=== PATIENT | female | born 1985 | race Caucasian/White ===

== ENCOUNTER 2023-05-24 14:14 | Emergency (ER) | payer BC, OTHER ==
[2023-05-24 14:51] LABS: Hematocrit 43.5 % (36.0-45.0); Lymphocytes % 33.2 % (15.3-44.8); MPV 8.7 fL (7.6-11.3); RBC Red Blood Cell Count 4.84 M/uL (3.86-4.86)
[2023-05-24] MEDS ORDERED: KETOROLAC 30 MG/ML INJ ONE (14:53)
[2023-05-24] MEDS ORDERED: DIPHENHYDRAMINE 50 MG/ML VIAL ONE (14:53)
[2023-05-24] MEDS ORDERED: METOCLOPRAMIDE 10 MG/2mL INJ ONE (14:53)
[2023-05-24] MEDS ORDERED: NA CHLORIDE 0.9% 1,000 ML ONE (14:53)
[2023-05-24 15:03] LABS: Albumin 3.5 g/dL (3.4-5.0); Bilirubin Total 0.6 mg/dL (0.2-1.0); Potassium 3.4 mEq/L (3.5-5.1); Protein, Total 7.6 g/dL (6.4-8.2)
--- NOTE | 2023-05-24 15:11 | RAD REPORT ---
EXAM DESCRIPTION: CT - Head Brain Wo Cont - 05/24/2023 3:00 pm CLINICAL HISTORY: HEADACHE Headache, drowsiness COMPARISON: Head Brain Wo Cont dated 05/24/2023No comparisonsNo comparisons TECHNIQUE: All CT scans are performed using dose optimization technique as appropriate and may inclu de automated exposure control or mA/KV adjustment according to patient size. FINDINGS: No intracranial hemorrhage, hydrocephalus or extra-axial fluid collection.No areas of brai n edema or evidence of midline shift. Mild mucosal thickening of several of the paranasal sinuses. The calvarium is intact. IMPRESSION: No acute intracranial abnormality.
[2023-05-24 16:59] LABS: Specific Gravity 1.008 (1.005-1.030)
[2023-05-24 17:00] LABS: Specific Gravity 1.008 (1.005-1.030); Urine Bacteria <20 /HPF (<20); Urine Bilirubin NEGATIVE (Negative); Urine Blood Negative (Negative); Urine Clarity Turbid (Clear); Urine Color Colorless (Yellow); Urine Glucose NEGATIVE (Negative); Urine Mucus Slight /HPF (None Seen); Urine Protein NEGATIVE (Negative); Urine RBC <5 /HPF (None Seen); Urine Urobilinogen Normal (Normal); Urine pH 5.5 (5.0-7.0)
--- NOTE | 2023-05-24 17:19 | RAD REPORT ---
EXAM DESCRIPTION: CT - Head angio - 05/24/2023 5:07 pm CLINICAL HISTORY: HEADACHE Headache, drowsiness COMPARISON: Head Brain Wo Cont dated 05/24/2023 TECHNIQUE: CT angiography of the head was performed with MIPs. All CT scans are performed using dose optimization technique as appropriate and may include automated exposure control or mA/KV adjustment according to patient size. FINDINGS: No evidence of large vessel occlusion. No evidence of aneurysm is detected. No flow-limiti ng stenosis or vascular malformation identified. Antegrade flow is seen in the vertebral arteries. Left vertebral mildly dominant. The visualized dural venous sinuses are patent. Moderate paranasal sinus disease is present. IMPRESSION: No significant flow abnormality is detected.
--- NOTE | 2023-05-24 17:21 | RAD REPORT ---
EXAM DESCRIPTION: CT - Neck Angio - 05/24/2023 5:07 pm CLINICAL HISTORY: PAIN Pain, swelling is, CVA symptomology COMPARISON: No comparisons TECHNIQUE: CT angiography of the neck vessels was performed with MIPs. All CT scans are performed using dose optimization technique as appropriate and may include automated exposure control or mA/KV adjustment according to patient size. FINDINGS: A left aortic arch is identified with normal three vessel configuration of the great vesse ls. No significant flow abnormality is seen of the common carotid bilaterally. No significant stenosis is identified involving the cervical segments of both internal carotid arteri es. Normal flow is seen within both vertebral arteries. IMPRESSION: No significant flow abnormality of the neck vessels is identified. NASCET criteria used. Mild 0-49% stenosis Moderate 50-69% stenosis Severe 70-99% stenosis
--- NOTE | 2023-05-24 17:22 | EDPHYS ---
Physician Documentation [facility] Name: Khushbu Casiano Age: 37 yrs Sex: Female : 1985 Arrival Date: 05/24/2023 Time: 14:14 Bed 14 Private MD: PAVEL Physician Toby Reyes HPI: 05/24 16:38 This 37 yrs old Female presents to ER via Ambulatory with complaints of saji Severe Headache. 16:38 The patient complains of pain to the top of head, forehead, left eye, left frontal saji area, left side of forehead and left temporal area. The patient describes the headache as constant. Onset: The symptoms/episode began/occurred gradually, 3 day(s) ago. Associated signs and symptoms: Pertinent positives: nausea. Severity of symptoms: At its worst the pain was moderate, severe, in the emergency department the pain has improved, moderately. Headache History: Denies prior headaches. The symptoms are alleviated by nothing. the symptoms are aggravated by lights, movement, noise. The patient has not experienced similar symptoms in the past. 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 - Social history:: Smoking status: Patient denies any tobacco usage or history of. - Family history:: not pertinent. ROS: 16:38 Constitutional: Negative for fever, chills, and weight loss, Eyes: Negative for injury, saji pain, redness, and discharge, ENT: Negative for injury, pain, and discharge, Neck: Negative for injury, pain, and swelling, Cardiovascular: Negative for chest pain, palpitations, and edema, Respiratory: Negative for shortness of breath, cough, wheezing, and pleuritic chest pain, Abdomen/GI: Negative for abdominal pain, nausea, vomiting, diarrhea, and constipation, Back: Negative for injury and pain, : Negative for injury, bleeding, discharge, and swelling, MS/Extremity: Negative for injury and deformity, Skin: Negative for injury, rash, and discoloration, Psych: Negative for depression, anxiety, suicide ideation, homicidal ideation, and hallucinations, Allergy/Immunology: Negative for hives, rash, and allergies, Endocrine: Negative for neck swelling, polydipsia, polyuria, polyphagia, and marked weight changes, Hematologic/Lymphatic: Negative for swollen nodes, abnormal bleeding, and unusual bruising. 16:38 Neuro: Positive for headache, of the left temporal area and left side of forehead and left frontal area and left eye and forehead. Exam: 16:38 Constitutional: This is a well developed, well nourished patient who is awake, alert, saji and in no acute distress. Head/Face: Normocephalic, atraumatic. Eyes: Pupils equal round and reactive to light, extra-ocular motions intact. Lids and lashes normal. Conjunctiva and sclera are non-icteric and not injected. Cornea within normal limits. Periorbital areas with no swelling, redness, or edema. ENT: Nares patent. No nasal discharge, no septal abnormalities noted. Tympanic membranes are normal and external auditory canals are clear. Oropharynx with no redness, swelling, or masses, exudates, or evidence of obstruction, uvula midline. Mucous membranes moist. Neck: Trachea midline, no thyromegaly or masses palpated, and no cervical lymphadenopathy. Supple, full range of motion without nuchal rigidity, or vertebral point tenderness. No Meningismus. Chest/axilla: Normal chest wall appearance and motion. Nontender with no deformity. No lesions are appreciated. Cardiovascular: Regular rate and rhythm with a normal S1 and S2. No gallops, murmurs, or rubs. Normal PMI, no JVD. No pulse deficits. Respiratory: Lungs have equal breath sounds bilaterally, clear to auscultation and percussion. No rales, rhonchi or wheezes noted. No increased work of breathing, no retractions or nasal flaring. Abdomen/GI: Soft, non-tender, with normal bowel sounds. No distension or tympany. No guarding or rebound. No evidence of tenderness throughout. Back: No spinal tenderness. No costovertebral tenderness. Full range of motion. Skin: Warm, dry with normal turgor. Normal color with no rashes, no lesions, and no evidence of cellulitis. MS/ Extremity: Pulses equal, no cyanosis. Neurovascular intact. Full, normal range of motion. Neuro: Awake and alert, GCS 15, oriented to person, place, time, and situation. Cranial nerves II-XII grossly intact. Motor strength 5/5 in all extremities. Sensory grossly intact. Cerebellar exam normal. Normal gait. Psych: Awake, alert, with orientation to person, place and time. Behavior, mood, and affect are within normal limits. 16:38 Neck: External neck: is normal, no acute changes, C-spine: appears grossly normal, no acute changes, Thyroid: appears normal, no acute changes, Trachea: is midline with no obvious abnormalities, no acute changes, ROM/movement: is normal, no acute changes, Lymph nodes: no appreciated lymphadenopathy. Vital Signs: 14:30 BP 143 / 92; Pulse 74; Resp 16; Temp 98.4(O); Pulse Ox 100% ; Weight 97.52 kg; Height 5 hb ft. 7 in. ; Pain 10/10; 14:30 BP 129 / 99; Pulse 73; Resp 16; Pulse Ox 100% on R/A; ko1 15:00 BP 130 / 83; Pulse 63; Resp 18; Pulse Ox 100% ; ko1 16:50 BP 111 / 74; Pulse 68; Resp 18; Pulse Ox 99% ; ko1 14:30 Body Mass Index 33.67 (97.52 kg, 170.18 cm) hb 14:30 Pain Scale: Adult hb [place] Coma Score: 16:41 Eye Response: spontaneous(4). Motor Response: obeys commands(6). Verbal Response: saji oriented(5). Total: 15. MDM: 14:32 Patient medically screened. saji 16:41 Differential diagnosis: cluster headache, cerebral vascular accident, epidural saji hematoma, hypertensive headache, hyponatremia, intracerebral hemorrhage, migraine, neoplasm, subarachnoid bleed, subdural hematoma, temporal arteritis, tension headache, traumatic injuries, trigeminal neuralgia, uremia, vasomotor headache. Data reviewed: vital signs, nurses notes, lab test result(s), radiologic studies, CT scan. Consideration of Admission/Observation Escalation of care including admission/observation considered. I considered the following discharge prescriptions or medication management in the emergency department Medications were administered in the Emergency Department. See MAR. Independent interpretation of the following test(s) in the Emergency Department. Test considered but Not performed: MRI: no mri brain. Care significantly affected by the following chronic conditions: none. Counseling: I had a detailed discussion with the patient and/or guardian regarding: the historical points, exam findings, and any diagnostic results supporting the discharge/admit diagnosis, lab results, radiology results, the need for outpatient follow up, for definitive care, a family practitioner, a neurologist. 05/24 14:31 Order name: CBC with Diff; Complete Time: 16:33 [facility] 05/24 14:31 Order name: Comprehensive Metabolic Panel; Complete Time: 16:33 [facility] 05/24 14:31 Order name: Urinalysis w/ reflexes; Complete Time: 17:20 [facility] 05/24 14:31 Order name: PREGU; Complete Time: 17:20 [facility] 05/24 14:31 Order name: CT Head Brain wo Cont; Complete Time: 16:33 [facility] 05/24 16:38 Order name: CT Head Angio [facility] 05/24 16:38 Order name: CT Neck Angio [facility] 05/24 14:31 Order name: Oxygen: 2 liters; Complete Time: 14:32 [facility] 05/24 16:34 Order name: Misc. Order: ua please; Complete Time: 17:14 [facility] Administered Medications: 14:54 Drug: NS 0.9% IV 1000 ml Route: IV; Rate: 1 bolus; Site: right antecubital; ko1 14:54 Drug: Ketorolac IVP 30 mg Route: IVP; Site: right antecubital; ko1 14:54 Drug: diphenhydrAMINE IVP 50 mg Route: IVP; Site: right antecubital; ko1 14:54 Drug: metoCLOPramide IVP 10 mg Route: IVP; Site: right antecubital; ko1 16:39 Drug: NS 0.9% IV 1000 ml Route: IV; Rate: 1 bolus; Site: right antecubital; ko1 Disposition Summary: 05/24/23 17:21 Discharge Ordered Location: Home saji Problem: new saji Symptoms: have improved saji Condition: Stable saji Diagnosis - Headache saji Followup: saji - With: Private Physician - When: 2 - 3 days - Reason: Recheck today's complaints, Continuance of care, Re-evaluation by your physician Followup: saji - With: - When: 2 - 3 days - Reason: Recheck today's complaints, Re-evaluation by your physician Discharge Instructions: - Discharge Summary Sheet saji - Cluster Headache saji - General Headache Without Cause saji - Migraine Headache saji - General Headache Without Cause, [id number] [facility] Forms: - Medication Reconciliation Form saji - Thank You Letter saji - Antibiotic Education saji - Prescription Opioid Use saji - Patient Portal Instructions [facility] Prescriptions: - Fioricet with Codeine [id number] mg Oral capsule - take 2 capsule by ORAL route every 4 hours as needed for pain; do not exceed 6 saji caps per day; 15 capsule; Refills: 0, Product Selection Permitted - ondansetron 4 mg Oral Tablet,disintegrating - take 1 tablet by ORAL route 3 times per day; 20 tablet; Refills: 0, Product saji Selection Permitted - Medrol (Jarrell) 4 mg Oral Tablets, Dose Pack - take 1 tablet by ORAL route as directed - follow package instructions; 1 saji packet; Refills: 0, Product Selection Permitted Signatures: Dispatcher [employer] Toby Hull MD MD cha Baxter, Heather, RN RN Melissa Singh, RN RN ko1
--- NOTE | 2023-05-24 17:22 | ER ---
Nurse's Notes [facility] Name: Khushbu Casiano Age: 37 yrs Sex: Female : 1985 Arrival Date: 05/24/2023 Time: 14:14 Bed 14 Private MD: Diagnosis: Headache Presentation: 05/24 14:30 Chief complaint: Left sided headache, worse around left eye, and nausea x 5 days. hb Coronavirus screen: At this time, the client does not indicate any symptoms associated with coronavirus-19. Ebola Screen: No symptoms or risks identified at this time. Initial Sepsis Screen: Does the patient meet any 2 criteria? No. Patient's initial sepsis screen is negative. Does the patient have a suspected source of infection? No. Patient's initial sepsis screen is negative. Risk Assessment: Do you want to hurt yourself or someone else? Patient reports no desire to harm self or others. Onset of symptoms was May 19, 2023. 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 - Social history:: Smoking status: Patient denies any tobacco usage or history of. - Family history:: not pertinent. Screenin:30 [facility] ED Fall Risk Assessment (Adult) History of falling in the last 3 months, ko1 including since admission No falls in past 3 months (0 pts) Confusion or Disorientation No (0 pts) Intoxicated or Sedated No (0 pts) Impaired Gait No (0 pts) Mobility Assist Device Used No (0 pt) Altered Elimination No (0 pt) Score/Fall Risk Level 0 - 2 = Low Risk Oriented to surroundings, Maintained a safe environment, Educated pt \T\ family on fall prevention, incl call for assistance when getting out of bed, Assessed \T\ reinforced patient's understanding of fall precautions, Provided non-skid footwear, Hourly rounding (assess needs \T\ fall precautionary measures) done, Used ambulatory aids as needed (educated on \T\ assisted with), Used gait belt as appropriate. Abuse screen: Denies threats or abuse. Denies injuries from another. Nutritional screening: No deficits noted. Tuberculosis screening: No symptoms or risk factors identified. Assessment: 14:30 General: Appears in no apparent distress. uncomfortable, Behavior is calm, cooperative, ko1 appropriate for age. Pain: Complains of pain in left temporal area and left side of forehead and left frontal area and left eye and forehead and top of head. Neuro: Reports headache in left frontal area. Cardiovascular: No deficits noted. Respiratory: No deficits noted. GI: No deficits noted. : No deficits noted. EENT: No deficits noted. Derm: No deficits noted. Musculoskeletal: No deficits noted. Vital Signs: 14:30 BP 143 / 92; Pulse 74; Resp 16; Temp 98.4(O); Pulse Ox 100% ; Weight 97.52 kg; Height 5 hb ft. 7 in. ; Pain 10/10; 14:30 BP 129 / 99; Pulse 73; Resp 16; Pulse Ox 100% on R/A; ko1 15:00 BP 130 / 83; Pulse 63; Resp 18; Pulse Ox 100% ; ko1 16:50 BP 111 / 74; Pulse 68; Resp 18; Pulse Ox 99% ; ko1 14:30 Body Mass Index 33.67 (97.52 kg, 170.18 cm) hb 14:30 Pain Scale: Adult hb [place] Coma Score: 16:41 Eye Response: spontaneous(4). Motor Response: obeys commands(6). Verbal Response: saji oriented(5). Total: 15. ED Course: 14:20 Patient arrived in ED. ts1 14:27 Melissa Ward, MARYELLEN is Primary Nurse. ko1 14:27 Toby Reyes MD is Attending Physician. saji 14:30 Patient has correct armband on for positive identification. Bed in low position. Call ko1 light in reach. Side rails up X 1. Provided Education on: NA. Client placed on continuous cardiac and pulse oximetry monitoring. NIBP monitoring applied. personnel monitor on. Door closed. Noise minimized. Lights dimmed. Warm blanket given. 14:30 Inserted saline lock: 20 gauge in right antecubital area, using aseptic technique. ko1 Blood collected. 14:32 Triage completed. hb 14:34 Arm band placed on. hb 14:41 Comprehensive Metabolic Panel Sent. ko1 14:41 CBC with Diff Sent. ko1 15:02 CT Head Brain wo Cont In Process Unspecified. EDMS 16:50 Urinalysis w/ reflexes Sent. ko1 16:50 PREGU Sent. ko1 17:09 CT Head Angio In Process Unspecified. EDMS 17:09 CT Neck Angio In Process Unspecified. EDMS 17:21 Kleber Villarreal MD is Referral Physician. saji 17:53 No provider procedures requiring assistance completed. IV discontinued, intact, ko1 bleeding controlled, No redness/swelling at site. Pressure dressing applied. Administered Medications: 14:54 Drug: NS 0.9% IV 1000 ml Route: IV; Rate: 1 bolus; Site: right antecubital; ko1 14:54 Drug: Ketorolac IVP 30 mg Route: IVP; Site: right antecubital; ko1 14:54 Drug: diphenhydrAMINE IVP 50 mg Route: IVP; Site: right antecubital; ko1 14:54 Drug: metoCLOPramide IVP 10 mg Route: IVP; Site: right antecubital; ko1 16:39 Drug: NS 0.9% IV 1000 ml Route: IV; Rate: 1 bolus; Site: right antecubital; ko1 Medication: 14:30 VIS not applicable for this client. ko1 Outcome: 17:21 Discharge ordered by . [facility] 17:54 Discharged to home ambulatory. ko1 17:54 Condition: improved 17:54 Discharge instructions given to patient, Instructed on discharge instructions, follow up and referral plans. medication usage, Demonstrated understanding of instructions, follow-up care, medications, Prescriptions given X 3. 17:55 Patient left the ED. ko1 Signatures: Dispatcher [employer] Toby Hull MD MD cha Baxter, Heather RN RN Melissa Singh RN RN ko1 Elba Cordova PAS PAS ts1
[2023-05-24 18:51] VITALS: TEMP 98.4
[2023-05-24 18:54] VITALS: BP 111/74; O2SAT 99
== END 2023-05-24 17:55 | disposition home or self-care (01) ==
LOC: ER 14:14
DX: R51.9 Headache, unspecified (principal)
CPT/HCPCS: 85025; 81001; 36415; 81025; 80053; 70450; 70496; 70498; 96375; 96374; 99285; Q9967; J2765; J1200; J7030